=== PATIENT | female | born 1985 | race Caucasian/White ===

== ENCOUNTER 2022-04-16 14:04 | Emergency (ER) | payer OTHER, SELFPAY ==
[2022-04-16 14:19] VITALS: BP 142/101; PULSE 93; RESP 16; TEMP 36.4; O2SAT 97; BMI 35.7
--- NOTE | 2022-04-16 16:01 | ED.NEUROSD ---
HPI - Neuro Symptoms/Deficit General Chief Complaint: Neuro Symptoms/Deficit Stated Complaint: Right side face paralysed Time Seen by Provider: 04/16/22 15:52 History of Present Illness HPI Narrative: Patient is a 37-year-old female currently 36 weeks presenting today with right facial droop. She was diagnosed with COVID 5 days ago. Last night she noted right-sided facial droop. She says that her tongue is completely numb not able to taste anything. She has no numbness tingling or weakness. She is having a mild headache. She is feeling little bit better from her COVID. She denies any abdominal pain or vaginal bleeding. She is having some right-sided ear pain she called her OB recommended that she come into the ED for evaluation. On Anticoagulants: No Related Data Previous Rx's Medication Instructions Recorded artifi.tears(hypromellose)(PF) 0.3 2 drp EYE-RIGHT Q3H PRN dry eye(s) 04/16/22 % eye drops #10 mL prednisone 50 mg tablet 50 mg PO DAILY #5 tabs 04/16/22 valacyclovir 1 gram tablet 1,000 mg PO Q12H #14 tabs 04/16/22 Allergies Allergy/AdvReac Type Severity Reaction Status Date / Time No Known Drug Allergies Allergy Verified 04/16/22 17:03 Review of Systems Review of Systems Narrative: GENERAL: Denies chills, fatigue, malaise, fever, sweats, travel HEENT: Denies sinus pain, ear pain, sore throat, difficulty swallowing, neck pain RESPIRATORY: Denies dyspnea, cough, wheezing, hemoptysis, sputum. CARDIOVASCULAR: Denies chest pain, palpitations, orthopnea, edema GASTROINTESTINAL: Denies nausea, vomiting, abdominal pain, diarrhea, constipation, melena. : Denies dysuria, frequency, incontinence, hematuria, urinary retention, flank pain. MUSCULOSKELETAL: Denies weakness, joint pain, or bony pain SKIN: No rash, no erythema, no pruritus NEUROLOGIC: See HPI PSYCHIATRIC: No concerning psychosocial issues. 12 point review of systems is negative except for those stated above and HPI Hematologic/Lymphatic On Anticoagulants: No Exam Initial Vital Signs Initial Vital Signs: Vital Signs Temperature 97.6 F 04/16/22 14:19 Pulse Rate 93 H 04/16/22 14:19 Respiratory Rate 16 04/16/22 14:19 Blood Pressure 142/101 H 04/16/22 14:19 Pulse Oximetry 97 04/16/22 14:19 Oxygen Delivery Method 04/16/22 14:19 GENERAL: Alert pleasant 37-year-old female and in no acute distress. HEENT: Head atraumatic,EOMI, pupils reactive, face symmetric, moist mucous membranes EARS: Tympanic membranes visualized, no erythema or bulging, no hemotympanum CARDIOVASCULAR: Regular rate and rhythm without murmurs, rubs or gallops. RESPIRATORY: Breath sounds equal bilaterally, no wheezes rales or rhonchi. ABDOMEN: Soft, nontender. Normoactive bowel sounds all 4 quadrants. No guarding or rebound. EXTREMITIES: Normal range of motion, no clubbing or edema. Neurovascularly intact NEUROLOGICAL: Alert and oriented x4.Normal gait and speech. Complete right-sided facial droop unable to wrinkle forehead on right side unable to close right eye on able to smile. SKIN: Warm, dry, no laceration, no petechiae, no rashes or lesions. Course Orders Ordered: ED Orders 04/16/22 16:47 CBC Auto Diff [Complete Blood Count AUTO DIFF] Stat CMP [Comprehensive Metabolic Panel] Stat Discontinued Medications Artificial Tears (Mineral Oil/Petrol Ophth Oint 3.5 Gm) 1 applic EYE-RIGHT NOW ONE Stop: 04/16/22 18:43 Sodium Chloride (Normal Saline 0.9%) 1,000 mls @ 1,000 mls/hr IV BOLUS ONE Stop: 04/16/22 17:32 Last Infusion: 04/16/22 18:07 Dose: 0 mls/hr Documented By: Admin: 04/16/22 17:01 Dose: 1,000 mls/hr Documented By: KEVIN Prednisone (Prednisone 20 Mg Tablet) 40 mg PO NOW ONE Stop: 04/16/22 18:35 Vital Signs Vital signs: Vital Signs - 8 hr 04/16/22 14:19 04/16/22 18:06 Temperature 97.6 F Pulse Rate 93 H 87 Respiratory Rate 16 Blood Pressure 142/101 H Pulse Oximetry 97 100 Oxygen Delivery Method Room Air MDM - Neuro Symptoms/Deficit Lab Data Result diagrams: 04/16/22 16:47 04/16/22 16:47 Labs: Lab Results 04/16/22 04/16/22 Range/Units 16:47 16:47 WBC 10.8 (4.5-11.0) X10^3/uL RBC 4.11 (4.0-5.2) X10^6/uL Hgb 12.6 (12.0-16.0) g/dL Hct 37.0 (36-46) % MCV 90.1 (80-100) fL MCH 30.8 (26-34) PG MCHC 34.1 (30-36) % RDW 13.0 (11.6-14.8) % Plt Count 289 (150-400) X10^3/uL Neut % (Auto) 77.1 H (50-75) % Lymph % (Auto) 15.9 L (25-40) % [place] % (Auto) 5.9 (3-14) % Eos % (Auto) 0.9 L (2-4) % Baso % (Auto) 0.2 (0-2) % Neut # (Auto) 8400 H (7677-1135) /uL Lymph # (Auto) 1700 (1619-7956) /uL [place] # (Auto) 600 (0-900) /uL Eos # (Auto) 100 (0-450) /uL Baso # (Auto) 0 (0-100) /uL Sodium 136 L (137-145) mmol/L Potassium 3.5 (3.4-5.1) mmol/L Chloride 105 (98-107) mmol/L Carbon Dioxide 25 (22-32) mmol/L BUN 4 L (7-17) mg/dL Creatinine 0.42 L (0.52-1.04) mg/dL Estimated GFR > 60 (>60) mL/min BUN/Creatinine Ratio 9.5 (6-22) Glucose 85 (70-100) mg/dL Calcium 8.8 (8.4-10.2) mg/dL Total Bilirubin 0.4 (0.2-1.3) mg/dL AST 26 (14-36) IU/L ALT 29 (<35) IU/L Alkaline Phosphatase 117 (38-126) U/L Total Protein 6.9 (6.3-8.2) g/dL Albumin 3.4 L (3.5-5.0) g/dL Globulin 3.5 (1.7-4.1) g/dL Albumin/Globulin Ratio 1.0 (1.0-2.8) Urine Dip Bedside Urine Glucose Negative Bedside Urine Bilirubin - Negative Bedside Urine Ketone - Negative Urine Specific [place] 1.015 Bedside Urine Occult Blood - Negative Bedside Urine pH 6.5 Bedside Urine Protein - Negative Bedside Urine Urobilinogen - Negative Bedside Urine Nitrite - Negative Bedside Urine Leukocytes - Negative Esterase MDM Narrative Medical decision making narrative: 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 She has complete both upper and lower facial motor neuron deficit. Possibly secondary to COVID. Symptoms started last night will start her on antiviral medication and prednisone. I did discuss this case with Dr. Lua who agrees with this plan and will have patient follow-up. She did receive IV fluids blood work is overall reassuring. Discharge Plan Departure Patient Disposition: Home Clinical Impression: Tapia's palsy Instructions: DI for [place] Palsy Activity Restrictions/Additional Instructions: *You have been diagnosed with Tapia's palsy *What to do: At this time his you likely have Tapia's palsy secondary to COVID. However will put you on medications. I discussed this with OBGYN *Continue to take medications as directed Valacyclovir 1 found was not mg every 12 hours for 7 days Prednisone 50 mg once a day for 5 Artificial tears every 1-2 hours while awake use ointment at night. You may need eye patch at night to help close her eye. *Follow up with your primary care provider in 2-3 days or call [phone] *Return to ER if you should have increasing shortness of breath weakness numbness tingling chest pain abdominal pain vaginal bleeding or any new, worsening or concerning symptoms Prescriptions: New valacyclovir 1 gram tablet 1,000 mg PO Q12H Qty: 14 0RF prednisone 50 mg tablet 50 mg PO DAILY Qty: 5 0RF artifi.tears(hypromellose)(PF) 0.3 % drops 2 drp EYE-RIGHT Q3H PRN (Reason: dry eye(s)) Qty: 10 1RF Referrals: Nneka Maguire MD [Primary Care Provider] -
--- NOTE | 2022-04-16 16:15 | PC.NURSE ---
L&D nurse Cammy Martinez auscultated FHTs x 190sec, 150 with regular rhythm. ED RN notified.
--- NOTE | 2022-04-16 16:39 | PC.NURSE ---
pt right sided facial paralysis. bells palsy. stated that it started yesterday when she noticed after she drank with a straw that it squirted out of her mouth. unable to close her eye all the way.
[2022-04-16] MEDS: SODIUM CHLORIDE 0.9% 1,000 ML 1000 ML IV (17:01)
[2022-04-16 17:09] LABS: Alanine Aminotransferase 29 IU/L (<35); Albumin 3.4 g/dL (3.5-5.0); Alkaline Phosphatase 117 U/L (38-126); Aspartate Aminotransferase 26 IU/L (14-36); BUN Creatinine Ratio 9.5 (6-22); Bilirubin Total 0.4 mg/dL (0.2-1.3); Blood Urea Nitrogen 4 mg/dL (7-17); Calcium 8.8 mg/dL (8.4-10.2); Carbon Dioxide 25 mmol/L (22-32); Chloride 105 mmol/L (98-107); Estimated Glomerular Filt Rate > 60 mL/min (>60); Globulin 3.5 g/dL (1.7-4.1); Glucose 85 mg/dL (70-100); HEMOLYSIS < 15 (0-50); Potassium 3.5 mmol/L (3.4-5.1); Sodium 136 mmol/L (137-145); Total Protein 6.9 g/dL (6.3-8.2)
[2022-04-16 17:13] LABS: Add Manual Diff / Slide Review NO; Basophils Absolute Auto 0 /uL (0-100); Basophils Percent Auto 0.2 % (0-2); Eosinophils Absolute Auto 100 /uL (0-450); Eosinophils Percent Auto 0.9 % (2-4); Hemoglobin 12.6 g/dL (12.0-16.0); Lymphocytes Absolute Auto 1700 /uL (1100-4500); Lymphocytes Percent Auto 15.9 % (25-40); Mean Corpuscular HGB Conc 34.1 % (30-36); Mean Corpuscular Hemoglobin 30.8 PG (26-34); Mean Corpuscular Volume 90.1 fL (80-100); Monocytes Absolute Auto 600 /uL (0-900); Monocytes Percent Auto 5.9 % (3-14); Neutrophils Absolute Auto 8400 /uL (1500-7000); Neutrophils Percent Auto 77.1 % (50-75); Platelet Count 289 X10^3/uL (150-400); Red Blood Cell Count 4.11 X10^6/uL (4.0-5.2); White Blood Cell Count 10.8 X10^3/uL (4.5-11.0)
[2022-04-16 18:06] VITALS: PULSE 87; O2SAT 100
[2022-04-16 18:10] VITALS: BP 146/95; PULSE 86; O2SAT 100
[2022-04-16] MEDS: MINERAL OIL/PETROL OPHTH OINT 3.5 GM 1 APPLIC EYE-RIGHT (19:12)
[2022-04-16] MEDS: predniSONE 20 MG TABLET 40 MG PO (19:12)
[2022-04-16 19:18] VITALS: BP 143/96; PULSE 84; RESP 16; O2SAT 100
== END 2022-04-16 19:19 | disposition home or self-care (01) ==
PROVIDERS: Emergency Provider Emergency Medicine; PCP Family Medicine
DX: G51.0 Bell's palsy (principal); Z3A.36 36 weeks gestation of pregnancy; U07.1 COVID-19
CPT/HCPCS: 36415; 80053; 81003; 85025; 96360; 99284